=== PATIENT | male | born 1985 | race African-American/Black ===

== ENCOUNTER 2017-03-10 12:10 | Emergency (ER) | payer OTHER ==
[2017-03-10] MEDS: KETOROLAC 60 MG/2 ML VIAL (J1885) IM (13:24)
== END 2017-03-10 14:37 | disposition home or self-care (01) ==
LOC: M ED 12:10
DX: Z04.1 Encounter for examination and observation following transport accident (principal); R07.81 Pleurodynia; M54.9 Dorsalgia, unspecified; M62.830 Muscle spasm of back; W22.12XA Striking against or struck by front passenger side automobile airbag, initial encounter; V43.62XA Car passenger injured in collision with other type car in traffic accident, initial encounter; Y92.410 Unspecified street and highway as the place of occurrence of the external cause
CPT/HCPCS: J1885

== ENCOUNTER → 2018-02-02 | Outpatient (CLI) | payer OTHER ==
[~2018-02-02] MED LIST: CONRAY-43 43% 50ML VIAL (Q9960) As Ordered; PROHANCE 279.3MG/ML 5ML VIAL (A9576) As Ordered
== END ==
LOC: M RADPRO 06:06
DX: M75.52 Bursitis of left shoulder (principal); M67.814 Other specified disorders of tendon, left shoulder; M25.512 Pain in left shoulder
CPT/HCPCS: 23350